=== PATIENT | male | born 1995 | race Caucasian/White ===

== ENCOUNTER 2017-07-29 22:07 | Emergency (ER) | payer MEDICAID ==
[~2017-07-29] VITALS: Ht 182.9 cm; Wt 76.2 kg
[2017-07-29] MEDS ORDERED: LIDOCAINE 1%, 20ML ONE (22:55)
[2017-07-29] MEDS ORDERED: AZITHROMYCIN 500 MG TABLET ONE (22:55)
[2017-07-29] MEDS ORDERED: CEFTRIAXONE 250 MG IM ONE (23:00)
[2017-07-29] MEDS ORDERED: AZITHROMYCIN 500 MG TABLET PO ONE (23:00)
[2017-07-29 23:08] VITALS: BP 112/74
== END 2017-07-30 | disposition home or self-care (01) ==
LOC: ED 23:15
DX: R30.0 Dysuria (principal); R36.9 Urethral discharge, unspecified
CPT/HCPCS: 87491; 87591; 96372; 99284; J0696

== ENCOUNTER 2018-10-30 10:55 | Emergency (ER) | payer MEDICAID ==
[~2018-10-30] VITALS: Ht 182.9 cm; Wt 68.0 kg
[2018-10-30 11:11] VITALS: BP 147/75
--- NOTE | 2018-10-30 11:28 | NUR ---
PT PRESENTED TO ED WITH MULTIPLE COMPLAINTS. PT WANTING A PRESCRIPTION FOR IS ANXIETY. PT WANTS HIV TEST. ASSESSMENT COMPLETED.
--- NOTE | 2018-10-30 11:45 | NUR ---
URINE COLLECTED AND SENT TO LAB.
--- NOTE | 2018-10-30 11:49 | NUR ---
PT WANTING TO LEAVE AND NOT WAIT FOR TEST RESULTS. PT REFUSED TO SIGN DISCHARGE INSTRUCTIONS. PT UP AMBULATORY AND STABLE ON FEET.
[2018-10-30 12:15] LABS: MICROSCOPIC INDICATED
[2018-10-30 12:38] LABS: CULTURE INDICATED? YES
== END 2018-10-30 11:51 | disposition home or self-care (01) ==
LOC: ED 11:45
DX: F41.9 Anxiety disorder, unspecified (principal); F17.200 Nicotine dependence, unspecified, uncomplicated; Z86.19 Personal history of other infectious and parasitic diseases
CPT/HCPCS: 81001; 87086; 87491; 87591; 99283